=== PATIENT | female | born 1935 | race Caucasian/White ===

== ENCOUNTER 2022-07-07 14:28 | Inpatient (IN) | payer MEDICARE, SELFPAY ==
--- NOTE | ~2022-07-07 | XR_ITS ---
EXAMINATION: XR chest 1V CLINICAL INFORMATION: Hip fracture COMPARISON: None TECHNIQUE: XR chest 1V Tubes and lines: None Lungs and pleura: Nonspecific minimal interstitial lung markings diffuse, no dense focal consolidation lobar pneumonia. No pleural effusion or pneumothorax. Heart and mediastinum: The mediastinum is within normal limits.. Bones/soft tissue: Skeletal structures included are normal for patient's age. XR/XR chest 1V IMPRESSION: * No radiographic evidence of acute cardiopulmonary disease. * Minimal nonspecific increased interstitial lung markings. * No pleural effusion.
--- NOTE | ~2022-07-07 | CT_ITS ---
EXAMINATION: CT CERVICAL SPINE WITHOUT CONTRAST CLINICAL INFORMATION: Fall COMPARISON: None TECHNIQUE: CT cervical spine on sagittal reconstructions. This CT examination was performed using dose optimization techniques as appropriate, variously including the following: *Automated exposure control *Adjustment of mA and/or kV according to patient size (this includes techniques or standardized protocols for targeted exams where dose is matched to indication/reason for exam; i.e. extremities or head) *Use of iterative reconstruction technique DLP: 669 mGy-cm FINDINGS: No abnormal prevertebral soft tissue swelling is seen. Paraspinal muscle fat planes are maintained. No acute cervical spine fracture is noted. Multilevel cervical spondylosis is present C2-C7. There is minimal subluxation seen at the C3-C4 and C4-C5 levels. There is spurring of the joints of [place] causing some anterior neural foraminal encroachment bilaterally C3-C7. Carotid artery calcifications present bilaterally. No significant apical lung lesion is appreciated. CT/CT cervical spine wo IV con IMPRESSION: No acute cervical spine fracture. Multilevel cervical spondylosis as described. Fleischner guidelines were followed.
--- NOTE | ~2022-07-07 | XR_ITS ---
EXAMINATION: XR FOOT, LEFT CLINICAL INFORMATION: Fall COMPARISON: None TECHNIQUE: Limited frontal, and lateral view. FINDINGS: The bones and soft tissues are normal. No fracture. Alignment is anatomic. Joint spaces are maintained. There is a small inferior calcaneal spur. XR/XR foot LT min 3V IMPRESSION: Limited incomplete study. Frontal view suboptimal angulated. * No fracture. * There is a small inferior calcaneal spur.
--- NOTE | ~2022-07-07 | XR_ITS ---
EXAMINATION: XR HIP, LEFT CLINICAL INFORMATION: Fall COMPARISON: None TECHNIQUE: Two views of the left hip. FINDINGS: Displaced angulated fracture of the left femoral neck, cephalad migration of humeral shaft. Femoral head remain properly positioned within the acetabulum. Adjacent pubic rami and iliac bones are intact. There is a right hip prosthesis in place. XR/XR hip LT w PEL1V IMPRESSION: Displaced angulated fracture of the left femoral neck.
--- NOTE | ~2022-07-07 | XR_ITS ---
EXAMINATION: XR PELVIS CLINICAL INFORMATION: Status post left hip hemiarthroplasty. Status post left femoral neck fracture. COMPARISON: July 07, 2022 TECHNIQUE: AP view of the pelvis. FINDINGS: Single view of the lower pelvis performed. No acute fracture or diastases is appreciated. Patient is status post bilateral hip arthroplasties with prosthetic components appearing in good position on this single view. Some gas is seen within the soft tissues about the left hip likely postsurgical. Hardware appears intact. XR/XR pelvis 1-2V IMPRESSION: Satisfactory appearance of bilateral total hip arthroplasties on single AP view.
--- NOTE | ~2022-07-07 | CT_ITS ---
EXAMINATION: CT HEAD WITHOUT CONTRAST CLINICAL INFORMATION: Status post fall COMPARISON: None TECHNIQUE: Contiguous axial imaging was performed from the skull base to vertex without intravenous administration of contrast. This CT examination was performed using dose optimization techniques as appropriate, variously including the following: *Automated exposure control *Adjustment of mA and/or kV according to patient size (this includes techniques or standardized protocols for targeted exams where dose is matched to indication/reason for exam; i.e. extremities or head) *Use of iterative reconstruction technique DLP: 669 mGy-cm FINDINGS: No intracranial hemorrhage identified. No abnormal extra-axial fluid collection. No significant mass effect or midline structure shift. Prieto-white matter interface is maintained. Ventricle sulci and cisterns appear unremarkable. There is some periventricular white matter low density present consistent with microangiopathy. Paranasal sinuses and mastoid air cells are aerated. Pterygoid plates intact. Temporomandibular joints in place. Calvarium appears intact. CT/CT head/brain wo IV con IMPRESSION: No acute intracranial pathology. Findings consistent with microangiopathy.
--- NOTE | ~2022-07-07 | XR_ITS ---
EXAMINATION: XR knee LT 4V CLINICAL INFORMATION: Reason for Exam s/p fall c left leg externally rotated COMPARISON: None available at the time of this dictation. TECHNIQUE: Frontal and lateral FINDINGS: BONES: No fracture or dislocation is present. JOINTS: Narrowing of joint spaces and developed osteophytes from the edges of articular surfaces suggest degenerative osteoarthritis. SOFT TISSUE: Heavy vascular calcifications. XR/XR knee LT 4V IMPRESSION: * No fracture. 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 * Heavy vascular calcifications.
[2022-07-07 14:41] VITALS: BP 150/80; PULSE 73; O2SAT 93
[2022-07-07 14:42] VITALS: BP 138/52; PULSE 75; RESP 16; TEMP 36.9; O2SAT 96; BMI 24.2
--- NOTE | 2022-07-07 15:06 | ECG_ITS ---
Test Reason : FALL Blood Pressure : / mmHG Vent. Rate : 075 BPM Atrial Rate : 075 BPM P-R Int : 176 ms QRS Dur : 084 ms QT Int : 414 ms P-R-T Axes : 053 036 028 degrees QTc Int : 462 ms Normal sinus rhythm Normal ECG When compared with ECG of 23-AUG-2018 13:52, No significant change was found Referred By: Laura Holman Electronically Signed By:ANGELITA GARRISON MD
[2022-07-07 15:56] LABS: MANUAL DIFF FLAG NO
[2022-07-07 15:58] LABS: Basophils Percent Auto 0.3 % (0-2); Eosinophils Percent Auto 0.3 % (0-4); Hematocrit 36.9 % (37.0-47.0); Hemoglobin 12.2 g/dl (12.0-16.0); Imm Gran Abs Auto 0.08 X10*3/uL (0.00-0.03); Imm Gran Pct Auto 0.8 % (0.0-0.4); Lymphocytes Absolute Auto 0.6 X10*3/uL (1.2-4.9); Lymphocytes Percent Auto 6.2 % (20-40); Mean Corpuscular HGB Conc 33.1 g/dl (31.0-35.0); Mean Corpuscular Hemoglobin 30.1 pg (27.0-33.0); Mean Corpuscular Volume 91.1 fL (80.0-98.0); Mean Platelet Volume 10.1 fL (9.4-12.3); Monocytes Absolute Auto 0.5 X10*3/uL (0.1-1.2); Neutrophils Percent Auto 87.4 % (45-73); Platelet Count 203 X10*3/uL (160-400); Red Blood Count 4.05 X10*6/uL (4.20-5.50); Red Cell Distribution Width 13.9 % (11.0-16.0); White Blood Count 10.3 X10*3/uL (4.8-10.8)
[2022-07-07 16:03] LABS: Prothrombin Time 11.3 SEC (10.0-13.1)
[2022-07-07 16:10] LABS: Alanine Aminotransferase 19 U/L (0-31); Albumin Level 3.7 g/dL (3.5-5.0); Alkaline Phosphatase 78 U/L (39-117); Anion Gap 11 (12-20); Aspartate Amino Transferase 20 U/L (5-31); Bilirubin Total 0.4 mg/dL (0.0-1.0); Blood Urea Nitrogen 14 mg/dL (9-16); Calcium 8.6 mg/dL (8.4-10.2); Carbon Dioxide 26 mmol/L (22-29); Chloride 105 mmol/L (96-108); Creatinine Clr Calc Pharmacy 35.3; Estimated Glomerular Filt Rate 50; Glucose Random 110 mg/dL (60-115); Magnesium 2.1 mg/dL (1.6-2.6); Potassium 4.3 mmol/L (3.3-5.1); Sodium 138 mmol/L (135-145); Total Protein 6.4 g/dL (6.5-8.0)
--- NOTE | 2022-07-07 16:30 | ED.FALL ---
HPI - Fall General Chief Complaint: Fall Stated Complaint: FALL W/LLE PAIN & HEAD STRIKE,-CCOLLAR,-LOC Time Seen by Provider: 07/07/22 14:44 Source: patient and EMS Mode of arrival: EMS Limitations: no limitations History of Present Illness HPI Narrative: 86yoF c PMHx of thyroid disease, hyperlipidemia and osteoporosis presenting to the ED via EMS after she had a fall while she was visiting a friend at a longterm prior to arrival. She reports that she was walking when her foot fell ?spongy?. Then she fell and since then she has been having limited ROM to her left leg. She reports that her foot feels cold and numb. Patient reports she did hit her head but did not lose consciousness. She denies any prolonged down time or being on any blood thinners or any symptoms prior to the fall. Reports that she does not ambulate with a walker or cane. She denies any other medical history. She denies any other symptoms which include dizziness, headaches, neck pain/stiffness, chest pain or shortness of breath, palpitations, nausea/vomiting/diarrhea, abdominal pain, back pain, flank pain, dysuria, hematuria, rashes or any other symptoms complaints or concerns at this time. MD complaint: fall Onset (ago): minute(s) (Prior to arrival) Fall from: standing Fall witnessed: yes, by bystander (At the longterm where she was visiting a friend) Place fall occurred: longterm/SNF (She was visiting a friend she does not reside there) Loss of consciousness: none Prolonged down time: no Symptoms prior to fall: none Location of injury: head Location of injury - extremities: left: lower leg (hip/knee aspect) Associated symptoms (after fall): unable to walk (Due to left leg) Related Data Allergies Allergy/AdvReac Type Severity Reaction Status Date / Time zinc [ZINC] Allergy Severe ITCHING Unverified 03/24/20 19:38 sulfamethoxazole Allergy Intermediate RASH Unverified 03/24/20 19:38 [From BACTRIM] trimethoprim [From BACTRIM] Allergy Intermediate RASH Unverified 03/24/20 19:38 Review of Systems Review of Systems: Constitutional : No Weight loss, No Fever, No Chills, No Night Sweats, No Fatigue, No Malaise ENT/Mouth : No Hearing loss, No Ear Pain, No Nasal Congestion, No Sinus Pain, No Hoarseness, No sore throat, No Rhinorrhea, No Swallowing Difficulty Eyes: No Eye Pain, No Swelling, No Redness, No Foreign Body, No Discharge, No Vision Changes Cardiovascular : No Chest Pain, No SOB, No Dyspnea on Exertion, No Orthopnea, No Edema, No Palpitations Respiratory : No Cough, No Sputum, No Wheezing, No Smoke Exposure, No Dyspnea Gastrointestinal : No Nausea, No Vomiting, No Diarrhea, No Constipation, No abdominal Pain, No Hematochezia, No Melena Genitourinary : no irregular bleeding, No Dysuria, No Urinary Frequency, No Hematuria, No Urinary Incontinence, No Urgency, No Flank Pain, No Urinary Flow Changes, No Hesitancy Musculoskeletal : + left hip/knee joint pain, No Myalgias, No Joint Swelling Skin : No Skin Lesions, No rash Neuro : No Weakness, No Numbness, No Paresthesias, No Loss of Consciousness, No Dizziness, No Headache Psych : No Anxiety/Panic, No Depression, No SI/HI/AH/VH, No Social Issues, Heme/Lymph: No Bruising, No Bleeding,No Lymphadenopathy Endocrine : No Polyuria, No Polydipsia, No Temperature Intolerance Yes all other systems are reviewed and are negative [facility] Past Medical History Attestation statement: The following information was validated with the patient. Source: old records reviewed and nursing notes reviewed Social History Social History Advance Directives: No Advance Directives Information Provided: Yes Physical Exam Vital Signs: Vital Signs: Last Vital Signs Temp 98.4 F 07/07/22 14:42 Pulse 75 07/07/22 14:42 Resp 16 07/07/22 14:42 BP 138/52 L 07/07/22 14:42 Pulse Ox 96 07/07/22 14:42 O2 Del Method 07/07/22 14:42 BMI result Body Mass Index 24.2 vital signs have been reviewed as normal and appeared to be correct. Blood pressure normal. Heart rate normal. Respiration rate normal. Temperature normal. Oxygen saturation normal. Appearance: Alert. Oriented X3. No acute distress. Head: Normal external exam. Normocephalic. Atraumatic. No Dumont signs noted. No raccoon eyes noted Eyes: PERRLA. EOMI. Conjunctiva and sclera normal. Eyelids normal. ENT: EAC normal. TM's Normal. No septal hematoma noted. No hemotympanum noted. Pharynx normal. Uvula midline. Moist mucous membranes. No lesions/ulcerations or masses noted on the tongue. Normal voice. No trismus noted. No drooling noted. No muffled voice noted. Neck: Normal inspection. Neck supple. FROM. No adenopathy. Thyroid Normal. No tracheal deviation noted. No crepitus is noted. No meningeal signs. No neck mass noted. No signs of trauma noted. CVS: Normal heart rate and rhythm. Heart sound normal. Pulses normal throughout. No murmurs/rales/gallops. Respiratory: No respiratory distress. Painless inspiration. Breath sounds normal. No wheezes/rales/rhonchi noted. Chest nontender. No crepitus is noted. No accessory muscle usage noted or decreased air movement noted. No signs of trauma. Abdomen: Soft and nontender. Nondistended. No guarding. No rigidity. Bowel sounds normal in all 4 quadrants. No distention noted. No organomegaly noted. No visible injury noted. No rebound tenderness. Negative Rovsing sign. Negative obturator's sign. Negative psoas sign. Negative Og sign. Back: No CVA tenderness. Full range of motion noted. Nontender. No signs of trauma. Patient neuro intact bilaterally and distally on all 4 extremities. Patient's reflexes intact bilaterally and distally on all 4 extremities. No rashes/lesion/induration/fluctuance or signs of infection noted. Skin: Skin warm and dry. Normal skin color. Normal skin turgor. No rashes/lesions/lacerations noted. Extremities: Patient's left lower extremity is abducted with external rotation of leg consistent with left hip fracture. Patient does not have any tenderness to the left ankle or the left knee. Otherwise all other extremities exhibit normal range of motion nontender. Neuro: Oriented X 3. No motor deficit. No sensory deficit. No focal neuro deficits noted. CN's II-XII intact bilaterally? Vascular: + radial pulses/+ 2 distal pedal pulses/+2 dorsalis pedis b/l. Normal cap refill. No cyanosis noted to upper extremity nails and lower extremity toes nails. Course Course Course Narrative: 15pm - 86yoF c PMHx of thyroid disease, HLD and osteoporosis presenting to the ED via EMS after she had a fall while she was visiting a friend at a longterm prior to arrival c left lower leg abduct it with external rotation. She reports that she was walking when her foot fell ?spongy?. Then she fell and since then she has been having limited ROM to her left leg. She reports that her foot feels cold and numb. Patient reports she did hit her head but did not lose consciousness. She denies any prolonged down time or being on any blood thinners or any symptoms prior to the fall. Reports that she does not ambulate with a walker or cane. Plan: Will obtain x-rays, CT scan of brain/cervical spine and patient reports she does not have much pain and refusing any pain meds at this time will re-evaluate. Reevaluation(s) Reevaluation #1: - Left hip x-ray revealed this placed angulated fracture of the left femoral neck otherwise no other acute processes were noted. - left knee/foot and ankle x-ray negative for any acute processes. - chest x-ray within normal limits no acute processes noted - CT scan of brain/cervical spine negative for any acute processes. Therefore labs were obtained and patient's labs are within normal limits. Plan: I spoke to the orthopedic PA Grace who reported that the patient should be kept NPO at midnight and she will most likely have left hip surgery tomorrow. I discussed this case with Nessa Arita the PA and she will be admitting the patient to the hospitalist service. Patient understands agrees with this plan. Time: 16:57 Medical Decision Making Consult Healthcare Provider Management of the patient was discussed with: Hospitalist and Appeals Examiner (Grace, orthopedic PA) Lab Data MDM Lab Attestation statement: I reviewed the patient's lab results. Result Diagrams: 07/07/22 15:51 07/07/22 15:51 Labs: Lab Results 07/07/22 07/07/22 07/07/22 Range/Units 15:51 15:51 15:51 WBC 10.3 (4.8-10.8) X10*3/uL RBC 4.05 L (4.20-5.50) X10*6/uL Hgb 12.2 (12.0-16.0) g/dl Hct 36.9 L (37.0-47.0) % MCV 91.1 (80.0-98.0) fL MCH 30.1 (27.0-33.0) pg MCHC 33.1 (31.0-35.0) g/dl RDW 13.9 (11.0-16.0) % Plt Count 203 (160-400) X10*3/uL MPV 10.1 (9.4-12.3) fL Immature Gran % (Auto) 0.8 H (0.0-0.4) % Neut % (Auto) 87.4 H (45-73) % Lymph % (Auto) 6.2 L (20-40) % [place] % (Auto) 5.0 (2-11) % Eos % (Auto) 0.3 (0-4) % Baso % (Auto) 0.3 (0-2) % Lymph # (Auto) 0.6 L (1.2-4.9) X10*3/uL [place] # (Auto) 0.5 (0.1-1.2) X10*3/uL Eos # (Auto) 0.0 (0.0-0.4) X10*3/uL Baso # (Auto) 0.0 (0.0-0.2) X10*3/uL Abs Immat Gran (auto) 0.08 H (0.00-0.03) X10*3/uL Absolute Neuts (auto) 9.0 H (2.0-8.3) x10*3/uL Absolute Nucleated RBC 0.000 (0.0-0.012) X10*3/uL Nucleated RBC % (auto) 0.0 (0.0-0.2) /100WBC PT 11.3 (10.0-13.1) SEC INR 1.0 (0.9-1.1) Sodium 138 (135-145) mmol/L Potassium 4.3 (3.3-5.1) mmol/L Chloride 105 (96-108) mmol/L Carbon Dioxide 26 (22-29) mmol/L Anion Gap 11 L (12-20) BUN 14 (9-16) mg/dL Creatinine 1.05 (0.5-1.4) mg/dL Estim Creat Clear Calc 35.3 Estimated GFR 50 Random Glucose 110 (60-115) mg/dL Calcium 8.6 (8.4-10.2) mg/dL Magnesium 2.1 (1.6-2.6) mg/dL Total Bilirubin 0.4 (0.0-1.0) mg/dL AST 20 (5-31) U/L ALT 19 (0-31) U/L Alkaline Phosphatase 78 (39-117) U/L Total Protein 6.4 L (6.5-8.0) g/dL Albumin 3.7 (3.5-5.0) g/dL Independent Interpretation Interpretation: CT scan of brain/cervical spine without contrast FINDINGS: No intracranial hemorrhage identified. No abnormal extra-axial fluid collection. No significant mass effect or midline structure shift. Prieto-white matter interface is maintained. Ventricle sulci and cisterns appear unremarkable. There is some periventricular white matter low density present consistent with microangiopathy. Paranasal sinuses and mastoid air cells are aerated. Pterygoid plates intact. Temporomandibular joints in place. Calvarium appears intact. ? CT/CT head/brain wo IV con IMPRESSION: No acute intracranial pathology. ? Findings consistent with microangiopathy. Left knee x-ray TECHNIQUE: Frontal and lateral FINDINGS: BONES: No fracture or dislocation is present. JOINTS: Narrowing of joint spaces and developed osteophytes from the edges of articular surfaces suggest degenerative osteoarthritis. SOFT TISSUE: Heavy vascular calcifications. XR/XR knee LT 4V IMPRESSION: ? *? No fracture. ? *? Degenerative osteoarthritis involving primarily medial compartment. ? *? Heavy vascular calcifications. ? Left hip x-ray FINDINGS: Displaced angulated fracture of the left femoral neck, cephalad migration of humeral shaft. Femoral head remain properly positioned within the acetabulum. Adjacent pubic rami and iliac bones are intact. There is a right hip prosthesis in place. XR/XR hip LT w PEL1V IMPRESSION: ? Displaced angulated fracture of the left femoral neck. Left foot x-ray FINDINGS: The bones and soft tissues are normal. No fracture. Alignment is anatomic. Joint spaces are maintained. There is a small inferior calcaneal spur. XR/XR foot LT min 3V IMPRESSION: Limited incomplete study. Frontal view suboptimal angulated. ? *? No fracture. ? *? There is a small inferior calcaneal spur. Chest x-ray TECHNIQUE: XR chest 1V Tubes and lines: None Lungs and pleura: Nonspecific minimal interstitial lung markings diffuse, no dense focal consolidation lobar pneumonia. No pleural effusion or pneumothorax. Heart and mediastinum: The mediastinum is within normal limits.. Bones/soft tissue: Skeletal structures included are normal for patient's age. XR/XR chest 1V IMPRESSION: ? *? No radiographic evidence of acute cardiopulmonary disease. ? *? Minimal nonspecific increased interstitial lung markings. ? *? No pleural effusion. Radiology Impression Discussion of test interpretation with radiology: I have reviewed the radiologist's reading. Critical Care Time Critical Care Time Critical Care Time: Yes Total Critical Care Time: 60 Attestation: I personally attest to this time spent taking care of the patient Discharge Plan Discharge Clinical Impression: Fall Femoral fracture Qualifiers: Encounter type: initial encounter Fracture type: closed Fracture alignment: displaced Laterality: left Patient Disposition: Admitted As Inpatient
--- NOTE | 2022-07-07 17:19 | P.HPHOSP_ITS ---
History of Present Illness Date of Service: 07/07/22 Chief Complaint: Fall An 86 years old lady with PMH of hypothyroidism, HLD in osteoporosis who presents to the hospital after sustaining a mechanical fall at a visit to her friend. The patient reported that she was walking into [facility] to visit her friend when she suddenly tripped and fell to the floor as her left foot to felt like sponge, she fell on her left side not hitting her head or losing her consciousness. She was unable to stand up on her own so they brought her a chair. She was unable to stand and ambulance was called who brought her to the hospital where an x-ray was consistent with left hip fracture. She denies any headache, double vision pain, chest pain, shortness of breath, fever, chills, change in bowel habit or urinary symptoms. She reports she is functional at home, she walks without a walker or a cane. Admitted for further evaluation and treatment. Review of Systems Review of Systems: No fever, chills or weakness No chest pain, palpitation No shortness of breath or coughing No abdominal pain, nausea or vomiting No urinary symptoms No any rash or wounds PMFSH Medical History Hyperlipidemia Hypothyroidism Osteoporosis Social History Advance Directives: No Advance Directives Information Provided: Yes Meds Allergies Allergy/AdvReac Type Severity Reaction Status Date / Time zinc [ZINC] Allergy Severe ITCHING Unverified 03/24/20 19:38 sulfamethoxazole Allergy Intermediate RASH Unverified 03/24/20 19:38 [From BACTRIM] trimethoprim [From BACTRIM] Allergy Intermediate RASH Unverified 03/24/20 19:38 Active Medications: Current Medications Pharmacy Consult (Consult Rx Perform Med Rec) 1 each MISCELLANE ONCE PRN PRN Reason: Consult order Sodium Chloride (0.9 % Sodium Chloride Flush 3 Ml Syringe) 3 ml IVFLUSH QSHIFT MONI Physical Exam Vital Signs and Narrative: Vital Signs: Last Vital Signs Temp 98.4 F 07/07/22 14:42 Pulse 75 07/07/22 14:42 Resp 16 07/07/22 14:42 BP 138/52 L 07/07/22 14:42 Pulse Ox 96 07/07/22 14:42 O2 Del Method 07/07/22 14:42 BMI result Body Mass Index 24.2 Const: Other: Constitutional : Awake, interactive, not in distress Neck : Normal inspection, Supple Cardiovascular : RRR, no JVP, no lower extremity edema Respiratory : good bilateral air entry, no crackles, wheezes or rhonchi Gastrointestinal: soft, lax, Normal bowel sounds, Non tender Skin : Warm, Dry Musculoskeletal: Left leg shorter and externally rotated, decreased sensation at the tip of her toe, pulse can be felt at posterior tibial Neurological : Alert & oriented x3, No focal deficit , CN 2-12 within normal Results Labs CBC and Chem 7: 07/07/22 15:51 07/07/22 15:51 Labs: Laboratory Results - last 24 hr 07/07/22 07/07/22 07/07/22 15:51 15:51 15:51 MCV 91.1 MCH 30.1 MCHC 33.1 RDW 13.9 Plt Count 203 MPV 10.1 Immature Gran % (Auto) 0.8 H Neut % (Auto) 87.4 H Lymph % (Auto) 6.2 L [place] % (Auto) 5.0 Eos % (Auto) 0.3 Baso % (Auto) 0.3 Lymph # (Auto) 0.6 L [place] # (Auto) 0.5 Eos # (Auto) 0.0 Baso # (Auto) 0.0 Abs Immat Gran (auto) 0.08 H Absolute Neuts (auto) 9.0 H Absolute Nucleated RBC 0.000 Nucleated RBC % (auto) 0.0 PT 11.3 INR 1.0 Anion Gap 11 L Estim Creat Clear Calc 35.3 Estimated GFR 50 Random Glucose 110 Calcium 8.6 Magnesium 2.1 Total Bilirubin 0.4 AST 20 ALT 19 Alkaline Phosphatase 78 Total Protein 6.4 L Albumin 3.7 Imaging Radiologist's Impressions: Impressions Chest X-Ray 07/07/22 15:26 IMPRESSION: * No radiographic evidence of acute cardiopulmonary disease. * Minimal nonspecific increased interstitial lung markings. * No pleural effusion. Foot X-Ray 07/07/22 15:26 IMPRESSION: Limited incomplete study. Frontal view suboptimal angulated. * No fracture. * There is a small inferior calcaneal spur. Hip/Pelvis X-Ray 07/07/22 15:26 IMPRESSION: Displaced angulated fracture of the left femoral neck. Knee X-Ray 07/07/22 15:26 IMPRESSION: * No fracture. 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 * Heavy vascular calcifications. Cervical Spine CT 07/07/22 15:40 IMPRESSION: No acute cervical spine fracture. Multilevel cervical spondylosis as described. Fleischner guidelines were followed. Head CT 07/07/22 15:40 IMPRESSION: No acute intracranial pathology. Findings consistent with microangiopathy. Assessment and Plan (1) Femoral fracture: Qualifiers: Encounter type: initial encounter Fracture alignment: displaced Fracture type: closed Laterality: left Status: Acute (2) Fall: Status: Acute Plan An 86 years old lady with PMH of hypothyroidism, HLD in osteoporosis who presents to the hospital after sustaining a mechanical fall at a visit to her friend. Preop eval Non emergent surgery, no evidence of ACS Functional, independent with ADLs and IADLs Patient carries mild perioperative cardiac risk No further testing, can proceed to surgery Left hip fracture secondary to Fall XR as above Orthopedic team to evaluate and to surgery in the morning Morphine as needed for pain To do physical therapy once surgery is done Hypothyroidism Continue home medication DVT PPX Heparin The patient will need 2. Overnight hospital stay for surgical intervention for left hip fracture and safe discharge plan. Time Spent With Patient Time: Total time managing care of this patient today ____ minutes. Quality Stroke Does the patient have a stroke diagnosis?: No VTE Prior VTE?: No VTE Risk Level:: Medical - low VTE Device Contraindication: Treatment Not Indicated VTE Drug Contraindication: N/A - Med Ordered
--- NOTE | 2022-07-07 18:19 | PHA.MEDREC ---
Pharmacy Consult ? Medication Reconciliation Pharmacy has completed the medication reconciliation. Patient has outdated med list. Confirmed actual meds with patient.
--- NOTE | 2022-07-07 18:36 | PC.NURSE ---
report given to S3 RN Camila
[2022-07-07 19:11] LABS: COVID-19 Test Negative (Negative); IDNOW Serial# 55D5AD1C
[2022-07-07 19:22] VITALS: BP 161/74; PULSE 79; RESP 18; TEMP 36.9; O2SAT 92
[2022-07-07] MEDS: Heparin Sodium,Porcine 5,000 UNIT/ML VIAL 5000 UNIT SUBCUT (20:35)
[2022-07-07] MEDS: 0.9 % Sodium Chloride Flush 3 ML SYRINGE IVFLUSH (20:36)
[2022-07-08] VITALS (13 sets, daily range): BP systolic 101–165; BP diastolic 51–92; PULSE 64–86; RESP 16–18; TEMP 36.1–37.4; O2SAT 91–98
[2022-07-08 06:43] LABS: Anion Gap 12 (12-20); Blood Urea Nitrogen 12 mg/dL (9-16); Calcium 8.4 mg/dL (8.4-10.2); Carbon Dioxide 23 mmol/L (22-29); Chloride 104 mmol/L (96-108); Creatinine Clr Calc Pharmacy 40.7; Estimated Glomerular Filt Rate 58; Glucose Random 124 mg/dL (60-115); Potassium 4.5 mmol/L (3.3-5.1); Sodium 134 mmol/L (135-145)
--- NOTE | 2022-07-08 07:52 | P.CONOP_ITS ---
History of Present Illness HPI Consult date: 07/08/22 Chief complaint: Fall Narrative: Patient is an 86 yo female with a PMH significant for thyroid dz, HLD, and osteoporosis, who presented to the ED yesterday evening after sustaining a mechanical fall while visiting her friend at [facility]. She had immediate left hip pain and after x-rays were obtained in the ED she was found to have a femoral neck fx. She was admitted to the medicine service with orthopedic consult for further evaluation and treatment. She lives alone and walks without any assistive devices. Review of Systems Review of Systems: Yes all other systems are reviewed and are negative PMFSH Past Medical History Medical History Hyperlipidemia Hypothyroidism Osteoporosis Surgical History Surgical History History of hernia surgery History of hip surgery Social History Social History Household Members: None Housing: Other Housing Other:: mobile home Do you presently have visiting nurse or other home services: No Patient Tobacco Use Status: Former Tobacco user Quit Date: 21 years ago Years Smoked: 25 Meds Allergies Allergy/AdvReac Type Severity Reaction Status Date / Time zinc [ZINC] Allergy Severe ITCHING Unverified 03/24/20 19:38 sulfamethoxazole Allergy Intermediate RASH Unverified 03/24/20 19:38 [From BACTRIM] trimethoprim [From BACTRIM] Allergy Intermediate RASH Unverified 03/24/20 19:38 Active Medications: Current Medications Acetaminophen (Acetaminophen 325 Mg Tablet) 650 mg PO Q6H PRN PRN Reason: Pain, Mild (Pain Scale 1-3) Morphine Sulfate (Morphine Sulfate 4 Mg/Ml Cartridge) 2 mg IVPUSH Q4H PRN; Protocol PRN Reason: Pain, Severe (Pain Scale 7-10) Ondansetron HCl (Ondansetron Hcl 4 Mg/2 Ml Vial) 4 mg IVPUSH Q8H PRN PRN Reason: Nausea and Vomiting Pharmacy Consult (Consult Rx Perform Med Rec) 1 each MISCELLANE ONCE PRN PRN Reason: Consult order Sodium Chloride (0.9 % Sodium Chloride Flush 3 Ml Syringe) 3 ml IVFLUSH QSHIFT [facility] Last Admin: 07/07/22 20:36 Dose: 3 ml Home Medications Medication Instructions Recorded Confirmed Last Taken Type alendronate 70 mg tablet 70 mg PO GOODEN@0900 07/07/22 07/07/22 06/24/22 History levothyroxine 75 mcg tablet 1 tab PO DAILY@0600 07/07/22 07/07/22 07/07/22 History simvastatin 10 mg tablet 1 tab PO BEDTIME 07/07/22 07/07/22 07/06/22 History Physical Exam Vital Signs: Vital Signs: Last Vital Signs Temp 98 F 07/08/22 07:41 Pulse 74 07/08/22 07:41 Resp 18 07/08/22 07:41 BP 150/65 H 07/08/22 07:41 Pulse Ox 91 L 07/08/22 07:41 O2 Del Method 07/08/22 06:48 BMI result Body Mass Index 24.2 Const: General: cooperative, healthy appearing and no acute distress Orientation/consciousness: patient oriented x3 HEENT: Head: Yes normal to inspection, Yes normocephalic and Yes atraumatic Eyes: General: appearance normal, both eyes and all related structures Neck: Neck: Yes normal visual inspection and Yes no lymphadenopathy Resp: Effort & Inspection: normal respiratory effort and able to speak in complete sentences Cardio: Rate: regular rate Peripheral pulses: Peripheral pulses 2+ throughout GI: Inspection: Yes normal to inspection Palpation (GI): Soft to palpation Skin: General skin exam: no rashes or lesions noted Lesions: no lesions Rashes: no rashes Neuro: General: patient oriented x3 Extrem: Other: Left lower extremity shortened and externally rotated. Skin intact over the left hip. Ecchymosis noted over the patella. Pain with log roll. Sensation intact. Pedal pulse intact. Psych: Mental Status: mental status grossly normal Results Labs Result Diagrams: 07/07/22 15:51 07/08/22 05:39 Labs: Abnormal lab results 07/07/22 07/07/22 07/08/22 Range/Units 15:51 15:51 05:39 RBC 4.05 L (4.20-5.50) X10*6/uL Hct 36.9 L (37.0-47.0) % Immature Gran % (Auto) 0.8 H (0.0-0.4) % Neut % (Auto) 87.4 H (45-73) % Lymph % (Auto) 6.2 L (20-40) % Lymph # (Auto) 0.6 L (1.2-4.9) X10*3/uL Abs Immat Gran (auto) 0.08 H (0.00-0.03) X10*3/uL Absolute Neuts (auto) 9.0 H (2.0-8.3) x10*3/uL Sodium 134 L (135-145) mmol/L Anion Gap 11 L (12-20) Random Glucose 124 H (60-115) mg/dL Total Protein 6.4 L (6.5-8.0) g/dL H & H 07/07/22 Range/Units 15:51 Hgb 12.2 (12.0-16.0) g/dl Hct 36.9 L (37.0-47.0) % Coagulation 07/07/22 Range/Units 15:51 INR 1.0 (0.9-1.1) All other labs normal. Assessment and Plan (1) Femoral fracture: Qualifiers: Encounter type: initial encounter Fracture alignment: displaced Fracture type: closed Laterality: left Status: Acute (2) Fall: Status: Acute (3) Fracture of femoral neck, left: Status: Acute I discussed the case with Dr. Waldrop and explained the extent of the injury to the patient and options available which include surgical intervention. I explained the procedure in detail along with the length of recovery and rehab course. I explained the risk, benefits and alternatives. Risk including, but not limited to infection, blood clots, bleeding, non union or malunion and nerve/tissue damage to surrounding areas. I answered all their questions and with their understanding they have consented to move forward with Operative Fixation of the left hip. The patient will be T&S, med clearance obtained and has been NPO after midnight. Time Spent With Patient Time: Total time managing care of this patient today ____ minutes. Procedures Date of Service Date of Service: 07/08/22
--- NOTE | 2022-07-08 09:08 | HO.ANESPROP2 ---
[facility] Active Problems Active Problems: All Active Problems (Updated 07/08/22 @ 07:55 by Grace Perez PA-C) Fracture of femoral neck, left (Acute) Femoral fracture (Acute) Fall (Acute) Past Medical History Medical History Hyperlipidemia Hypothyroidism Osteoporosis Functional capacity: uses cane/walker Patient : No Family History Family history of problems with anesthesia: No Surgical History Surgical History History of hernia surgery History of hip surgery History of Problems with Anesthesia: No Social History Social History Household Members: None Housing: Other Housing Other:: mobile home Do you presently have visiting nurse or other home services: No Patient Tobacco Use Status: Former Tobacco user Quit Date: 21 years ago Years Smoked: 25 Meds Allergies Allergy/AdvReac Type Severity Reaction Status Date / Time zinc [ZINC] Allergy Severe ITCHING Unverified 03/24/20 19:38 sulfamethoxazole Allergy Intermediate RASH Unverified 03/24/20 19:38 [From BACTRIM] trimethoprim [From BACTRIM] Allergy Intermediate RASH Unverified 03/24/20 19:38 Active Medications: Current Medications Acetaminophen (Acetaminophen 325 Mg Tablet) 650 mg PO Q6H PRN PRN Reason: Pain, Mild (Pain Scale 1-3) Morphine Sulfate (Morphine Sulfate 4 Mg/Ml Cartridge) 2 mg IVPUSH Q4H PRN; Protocol PRN Reason: Pain, Severe (Pain Scale 7-10) Ondansetron HCl (Ondansetron Hcl 4 Mg/2 Ml Vial) 4 mg IVPUSH Q8H PRN PRN Reason: Nausea and Vomiting Pharmacy Consult (Consult Rx Perform Med Rec) 1 each MISCELLANE ONCE PRN PRN Reason: Consult order Sodium Chloride (0.9 % Sodium Chloride Flush 3 Ml Syringe) 3 ml IVFLUSH [facility] Last Admin: 07/08/22 09:03 Dose: Not Given Home Medications Medication Instructions Recorded Confirmed Last Taken Type alendronate 70 mg tablet 70 mg PO GOODEN@0900 07/07/22 07/07/22 06/24/22 History levothyroxine 75 mcg tablet 1 tab PO DAILY@0600 07/07/22 07/07/22 07/07/22 History simvastatin 10 mg tablet 1 tab PO BEDTIME 07/07/22 07/07/22 07/06/22 History Exam Exam Date and Time: July 08, 2022 0908 Height,Weight and Vital Signs: Height 5 ft 6 in Weight 68.039 kg Last Vital Signs Temp 98 F 07/08/22 07:41 Pulse 74 07/08/22 07:41 Resp 18 07/08/22 07:41 BP 150/65 H 07/08/22 07:41 Pulse Ox 91 L 07/08/22 07:41 O2 Del Method 07/08/22 06:48 Pertinent Lab Results Pertinent Lab Results: Laboratory Tests 07/07/22 07/07/22 07/07/22 15:51 15:51 15:51 WBC 10.3 RBC 4.05 L Hgb 12.2 Hct 36.9 L MCV 91.1 MCH 30.1 MCHC 33.1 RDW 13.9 Plt Count 203 MPV 10.1 Immature Gran % (Auto) 0.8 H Neut % (Auto) 87.4 H Lymph % (Auto) 6.2 L [place] % (Auto) 5.0 Eos % (Auto) 0.3 Baso % (Auto) 0.3 Lymph # (Auto) 0.6 L [place] # (Auto) 0.5 Eos # (Auto) 0.0 Baso # (Auto) 0.0 Abs Immat Gran (auto) 0.08 H Absolute Neuts (auto) 9.0 H Absolute Nucleated RBC 0.000 Nucleated RBC % (auto) 0.0 PT 11.3 INR 1.0 Sodium 138 Potassium 4.3 Chloride 105 Carbon Dioxide 26 Anion Gap 11 L BUN 14 Creatinine 1.05 Estim Creat Clear Calc 35.3 Estimated GFR 50 Random Glucose 110 Calcium 8.6 Magnesium 2.1 Total Bilirubin 0.4 AST 20 ALT 19 Alkaline Phosphatase 78 Total Protein 6.4 L Albumin 3.7 COVID-19 ([facility]) COVID-19 Clin Com Blood Type Antibody Screen 07/07/22 07/07/22 07/08/22 18:52 20:08 05:39 WBC RBC Hgb Hct MCV MCH MCHC RDW Plt Count MPV Immature Gran % (Auto) Neut % (Auto) Lymph % (Auto) [place] % (Auto) Eos % (Auto) Baso % (Auto) Lymph # (Auto) [place] # (Auto) Eos # (Auto) Baso # (Auto) Abs Immat Gran (auto) Absolute Neuts (auto) Absolute Nucleated RBC Nucleated RBC % (auto) PT INR Sodium 134 L Potassium 4.5 Chloride 104 Carbon Dioxide 23 Anion Gap 12 BUN 12 Creatinine 0.91 Estim Creat Clear Calc 40.7 Estimated GFR 58 Random Glucose 124 H Calcium 8.4 Magnesium Total Bilirubin AST ALT Alkaline Phosphatase Total Protein Albumin COVID-19 ([facility]) Negative COVID-19 Clin Com See Note Blood Type A Positive Antibody Screen NEGATIVE Airway Mallampati Class: II TM Dist: >3cm Neck ROM: Full Denture: Upper and Lower Heart: RRR Lungs: CTA Assessment and Plan Final Anesthetic Review Family History of Problems with Anesthesia: No History of Problems with Anesthesia: No NPO: Yes ASA Class: II and Emergency Final Preanesthetic Review: Meds/Allgs Chart Reviewed, Consent Obtained/Reviewed and Anes Risks/Benef Reviewed Patient Risk: Intermediate Procedure Risk: Intermediate Anesthetic Plan Anesthetic Plan: GA Disposition: Standard PACU
--- NOTE | 2022-07-08 09:24 | MHC.SHP ---
Pre-Procedural Eval Section A Date of Service: 07/08/22 The patient is an INPATIENT: Yes Changes since office visit: No Cold of Flu in the past 2 weeks, No New Medical Problems, No Changes in Medication and No Patient answered all questions The History & Physical has been completed within 30 days and I have reviewed it.: Yes Section B Chief Complaint: Fall Allergies: Allergies Allergy/AdvReac Type Severity Reaction Status Date / Time zinc [ZINC] Allergy Severe ITCHING Unverified 03/24/20 19:38 sulfamethoxazole Allergy Intermediate RASH Unverified 03/24/20 19:38 [From BACTRIM] trimethoprim [From BACTRIM] Allergy Intermediate RASH Unverified 03/24/20 19:38 Plan I have reviewed the history and physical and performed a pertinent physical examination on my patient. No changes have occurred unless specified. Time Spent With Patient Time: Total time managing care of this patient today ____ minutes.
--- NOTE | 2022-07-08 11:04 | PM.OP ---
Brief Operative Note Date of Service: 07/08/22 Pre-op diagnosis: Left femoral neck fracture Post-op diagnosis: same Procedure: Left hip hemiarthroplasty Implants: Olga Lidia Accollade II #6 127 deg with a +4 bipolar Surgeon: Rupesh Waldrop MD Anesthesia: GETA and local Was an Consulting Manager used for this Procedure?: Yes Consulting Manager: Grace Perez Estimated blood loss (mL): 200 IV fluids (mL): 850 Pathology: other Condition: stable Disposition: PACU
--- NOTE | 2022-07-08 11:29 | HO.PM.IMPN ---
Subjective Subjective Date of Service: 07/08/22 Interval History: Seen and evaluated this morning Denies any pain, fever or chills No reported overnight events Plan for surgery this morning Review of Systems No fever, chills or weakness No chest pain, palpitation No shortness of breath or coughing No abdominal pain, nausea or vomiting No urinary symptoms No any rash or wounds Physical Exam Vital Signs: Vital Signs: Last Vital Signs Temp 98 F 07/08/22 07:41 Pulse 74 07/08/22 07:41 Resp 18 07/08/22 07:41 BP 150/65 H 07/08/22 07:41 Pulse Ox 91 L 07/08/22 07:41 O2 Del Method 07/08/22 06:48 BMI result Body Mass Index 24.2 Const: Other: Constitutional : Awake, interactive, not in distress Neck : Normal inspection, Supple Cardiovascular : RRR, no JVP, no lower extremity edema Respiratory : good bilateral air entry, no crackles, wheezes or rhonchi Gastrointestinal: soft, lax, Normal bowel sounds, Non tender Skin : Warm, Dry Musculoskeletal: Left leg shorter and externally rotated, decreased sensation at the tip of her toe, pulse can be felt at posterior tibial Neurological : Alert & oriented x3, No focal deficit , CN 2-12 within normal Objective Data Active Medications Acetaminophen (Acetaminophen 325 Mg Tablet) 650 mg PO Q6H PRN PRN Reason: Pain, Mild (Pain Scale 1-3) Fentanyl (Fentanyl Citrate/Pf 100 Mcg/2 Ml Vial) 25 mcg IVPUSH Q5M PRN; Protocol PRN Reason: Pain, Moderate (Pain Scale 4-6 Morphine Sulfate (Morphine Sulfate 4 Mg/Ml Cartridge) 2 mg IVPUSH Q4H PRN; Protocol PRN Reason: Pain, Severe (Pain Scale 7-10) Ondansetron HCl (Ondansetron Hcl 4 Mg/2 Ml Vial) 4 mg IVPUSH Q8H PRN PRN Reason: Nausea and Vomiting Ondansetron HCl (Ondansetron Hcl 4 Mg/2 Ml Vial) 4 mg IVPUSH ONCE PRN PRN Reason: Nausea and Vomiting Pharmacy Consult (Consult Rx Perform Med Rec) 1 each MISCELLANE ONCE PRN PRN Reason: Consult order Sodium Chloride (0.9 % Sodium Chloride Flush 3 Ml Syringe) 3 ml IVFLUSH [facility] Last Admin: 07/08/22 09:03 Dose: Not Given Documented By: SHAMIR Non-Admin Reason: Off Unit: Surgery Labs CBC & Chem 7: 07/07/22 15:51 07/08/22 05:39 Labs: Laboratory Results - last 24 hr 07/07/22 07/07/22 07/07/22 15:51 15:51 15:51 MCV 91.1 MCH 30.1 MCHC 33.1 RDW 13.9 Plt Count 203 MPV 10.1 Immature Gran % (Auto) 0.8 H Neut % (Auto) 87.4 H Lymph % (Auto) 6.2 L [place] % (Auto) 5.0 Eos % (Auto) 0.3 Baso % (Auto) 0.3 Lymph # (Auto) 0.6 L [place] # (Auto) 0.5 Eos # (Auto) 0.0 Baso # (Auto) 0.0 Abs Immat Gran (auto) 0.08 H Absolute Neuts (auto) 9.0 H Absolute Nucleated RBC 0.000 Nucleated RBC % (auto) 0.0 PT 11.3 INR 1.0 Anion Gap 11 L Estim Creat Clear Calc 35.3 Estimated GFR 50 Random Glucose 110 Calcium 8.6 Magnesium 2.1 Total Bilirubin 0.4 AST 20 ALT 19 Alkaline Phosphatase 78 Total Protein 6.4 L Albumin 3.7 COVID-19 ([facility]) COVID-19 Clin Com Blood Type Antibody Screen 07/07/22 07/07/22 07/08/22 18:52 20:08 05:39 MCV MCH MCHC RDW Plt Count MPV Immature Gran % (Auto) Neut % (Auto) Lymph % (Auto) [place] % (Auto) Eos % (Auto) Baso % (Auto) Lymph # (Auto) [place] # (Auto) Eos # (Auto) Baso # (Auto) Abs Immat Gran (auto) Absolute Neuts (auto) Absolute Nucleated RBC Nucleated RBC % (auto) PT INR Anion Gap 12 Estim Creat Clear Calc 40.7 Estimated GFR 58 Random Glucose 124 H Calcium 8.4 Magnesium Total Bilirubin AST ALT Alkaline Phosphatase Total Protein Albumin COVID-19 ([facility]) Negative COVID-19 Clin Com See Note Blood Type A Positive Antibody Screen NEGATIVE Assessment and Plan (1) Fracture of femoral neck, left: Status: Acute (2) Fall: Status: Acute Plan An 86 years old lady with PMH of hypothyroidism, HLD in osteoporosis who presents to the hospital after sustaining a mechanical fall at a visit to her friend. Left hip fracture secondary to Fall XR as reported Orthopedic team to do surgery today Morphine as needed for pain physical therapy once surgery is done Hypothyroidism Continue home medication DVT PPX Heparin The patient will need Overnight hospital stay for surgical intervention for left hip fracture and safe discharge plan. Time Spent With Patient Time: Total time managing care of this patient today ____ minutes. Quality Stroke Does the patient have a stroke diagnosis?: No VTE Prior VTE?: No VTE Risk Level:: Medical - low VTE Device Contraindication: Treatment Not Indicated VTE Drug Contraindication: N/A - Med Ordered
[2022-07-08] MEDS: Lactated Ringers 1,000 ML 100 ML IVCONT ×2 (12:05→21:00)
[2022-07-08] MEDS: Celecoxib 200 MG CAPSULE PO ×2 (12:36→21:12)
[2022-07-08] MEDS: oxyCODONE HCl ER 10 MG TAB.ER.12H PO ×2 (12:36→21:06)
[2022-07-08] MEDS: Docusate Sodium 100 MG CAPSULE PO ×2 (12:36→21:06)
[2022-07-08] MEDS: ceFAZolin Sodium/Dextrose,Iso 2 GM/50 ML PIGGYBACK IV (15:51)
[2022-07-08] MEDS: Atorvastatin Calcium 10 MG TABLET PO (21:06)
[2022-07-09] VITALS (13 sets, daily range): BP systolic 94–126; BP diastolic 45–58; PULSE 60–71; RESP 12–20; TEMP 36.6–37.2; O2SAT 91–100
[2022-07-09 06:01] LABS: MANUAL DIFF FLAG NO
[2022-07-09] MEDS: Levothyroxine Sodium 75 MCG TABLET PO (06:03)
[2022-07-09] MEDS: Lactated Ringers 1,000 ML 100 ML IVCONT (06:04)
[2022-07-09 06:22] LABS: Basophils Percent Auto 0.3 % (0-2); Eosinophils Percent Auto 0.1 % (0-4); Imm Gran Abs Auto 0.07 X10*3/uL (0.00-0.03); Imm Gran Pct Auto 0.9 % (0.0-0.4); Lymphocytes Absolute Auto 0.4 X10*3/uL (1.2-4.9); Lymphocytes Percent Auto 5.5 % (20-40); Mean Corpuscular HGB Conc 33.3 g/dl (31.0-35.0); Mean Corpuscular Hemoglobin 30.1 pg (27.0-33.0); Mean Corpuscular Volume 90.2 fL (80.0-98.0); Mean Platelet Volume 10.9 fL (9.4-12.3); Monocytes Absolute Auto 0.6 X10*3/uL (0.1-1.2); Monocytes Percent Auto 7.4 % (2-11); Neutrophils Absolute Auto 6.9 x10*3/uL (2.0-8.3); Neutrophils Percent Auto 85.8 % (45-73); Platelet Count 142 X10*3/uL (160-400); Red Blood Count 2.66 X10*6/uL (4.20-5.50)
[2022-07-09 06:41] LABS: Anion Gap 12 (12-20); Blood Urea Nitrogen 20 mg/dL (9-16); Calcium 7.8 mg/dL (8.4-10.2); Carbon Dioxide 23 mmol/L (22-29); Chloride 101 mmol/L (96-108); Creatinine Clr Calc Pharmacy 32.5; Estimated Glomerular Filt Rate 45; Glucose Random 117 mg/dL (60-115); Potassium 4.8 mmol/L (3.3-5.1); Sodium 131 mmol/L (135-145)
[2022-07-09] MEDS: Docusate Sodium 100 MG CAPSULE PO ×2 (08:38→20:24)
[2022-07-09] MEDS: oxyCODONE HCl ER 10 MG TAB.ER.12H PO ×2 (08:38→20:24)
[2022-07-09] MEDS: Celecoxib 200 MG CAPSULE PO ×2 (08:38→20:24)
--- NOTE | 2022-07-09 09:26 | MHC.CM.PN ---
IMM 07/09/22 DELIVERED AND PLACED IN CHART, CM MET W/PT WH IS A&OX4, PT REPORTS SHE WAS VISITING HER OLD ROOMMATE AT [facility] WHERE SHE RESIDES IN LT AND FELL AND BROKE HER HIP AND SHE WOULD LIKE TO GO THERE FOR STR SO SHE CAN VISIT. PT VERIFIES PFIZER X3 AND CARD PROVIDED, PCP IS EMMA CANTU AND HCP IS XIMENA ORDOÑEZ [phone] AND ED WILL BRING IN COPY. JULIO C D/C TO [facility] FOR STR TODAY OR TOMORROW W/[facility] FOR TRANSPORT
--- NOTE | 2022-07-09 11:25 | P.PNIM_ITS ---
Subjective Subjective Date of Service: 07/09/22 Interval History: Seen and evaluated this morning Denies any pain, fever or chills Hemoglobin noted to drop to 8, no reported bleeding No reported overnight events Review of Systems No fever, chills or weakness No chest pain, palpitation No shortness of breath or coughing No abdominal pain, nausea or vomiting No urinary symptoms No any rash or wounds Physical Exam Vital Signs: Vital Signs: Last Vital Signs Temp 98.0 F 07/09/22 08:00 Pulse 65 07/09/22 08:00 Resp 18 07/09/22 08:00 BP 112/52 L 07/09/22 08:00 Pulse Ox 93 07/09/22 08:00 O2 Del Method 07/09/22 08:00 O2 Flow Rate 3 07/09/22 08:00 BMI result Body Mass Index 24.2 Const: Other: Constitutional : Awake, interactive, not in distress Neck : Normal inspection, Supple Cardiovascular : RRR, no JVP, no lower extremity edema Respiratory : good bilateral air entry, no crackles, wheezes or rhonchi Gastrointestinal: soft, lax, Normal bowel sounds, Non tender Skin : Warm, Dry Musculoskeletal: Left leg surgical site covered with dressing, no erythema drainage or bleeding noted Neurological : Alert & oriented x3, No focal deficit Objective Data Active Medications Acetaminophen (Acetaminophen 325 Mg Tablet) 650 mg PO Q6H PRN PRN Reason: Pain, Mild (Pain Scale 1-3) Atorvastatin Calcium (Atorvastatin Calcium 10 Mg Tablet) 10 mg PO BEDTIME ON LICENSE OF [facility] Last Admin: 07/08/22 21:06 Dose: 10 mg Documented By: OMKAR Celecoxib (Celecoxib 200 Mg Capsule) 200 mg PO BID ON LICENSE OF [facility] Last Admin: 07/09/22 08:38 Dose: 200 mg Documented By: SHAMIR Docusate Sodium (Docusate Sodium 100 Mg Capsule) 100 mg PO BID ON LICENSE OF [facility] Last Admin: 07/09/22 08:38 Dose: 100 mg Documented By: SHAMIR Enoxaparin Sodium (Enoxaparin Sodium 40 Mg/0.4 Ml Syringe) 40 mg SUBCUT Q24H ON LICENSE OF [facility] Fentanyl (Fentanyl Citrate/Pf 100 Mcg/2 Ml Vial) 25 mcg IVPUSH Q5M PRN; Protocol PRN Reason: Pain, Moderate (Pain Scale 4-6 Hydromorphone HCl (Hydromorphone Hcl 0.5 Mg/0.5 Ml Syringe) 0.25 mg IVPUSH Q4H PRN; Protocol PRN Reason: Pain, Severe (Pain Scale 7-10) Lactated Ringer's (Lr) 1,000 mls @ 100 mls/hr IVCONT .Q10H ON LICENSE OF [facility] Stop: 07/09/22 14:00 Last Admin: 07/09/22 06:04 Dose: 100 mls/hr Documented By: OMKAR Levothyroxine Sodium (Levothyroxine Sodium 75 Mcg Tablet) 75 mcg PO DAILY@0600 ON LICENSE OF [facility] Last Admin: 07/09/22 06:03 Dose: 75 mcg Documented By: OMKAR Ondansetron HCl (Ondansetron Hcl 4 Mg/2 Ml Vial) 4 mg IVPUSH ONCE PRN PRN Reason: Nausea and Vomiting Oxycodone HCl (Oxycodone Hcl Immed Release 5 Mg Tablet) 5 mg PO Q4H PRN PRN Reason: Pain, Moderate (Pain Scale 4-6 Oxycodone HCl (Oxycodone Hcl Er 10 Mg Tab.Er.12h) 10 mg PO BID ON LICENSE OF [facility] Last Admin: 07/09/22 08:38 Dose: 10 mg Documented By: SHAMIR Pharmacy Consult (Consult Rx Perform Med Rec) 1 each MISCELLANE ONCE PRN PRN Reason: Consult order Sodium Chloride (0.9 % Sodium Chloride Flush 3 Ml Syringe) 3 ml IVFLUSH [facility] Last Admin: 07/09/22 08:38 Dose: Not Given Documented By: SHAMIR Non-Admin Reason: IV Running Sodium Chloride (0.9 % Sodium Chloride Flush 3 Ml Syringe) 3 ml IVFLUSH [facility] Last Admin: 07/09/22 08:38 Dose: Not Given Documented By: SHAMIR Non-Admin Reason: Duplicate Order Labs CBC & Chem 7: 07/09/22 05:33 07/09/22 05:33 Labs: Laboratory Results - last 24 hr 07/09/22 07/09/22 05:33 05:33 MCV 90.2 MCH 30.1 MCHC 33.3 RDW 14.0 Plt Count 142 L D MPV 10.9 Immature Gran % (Auto) 0.9 H Neut % (Auto) 85.8 H Lymph % (Auto) 5.5 L [place] % (Auto) 7.4 Eos % (Auto) 0.1 Baso % (Auto) 0.3 Lymph # (Auto) 0.4 L [place] # (Auto) 0.6 Eos # (Auto) 0.0 Baso # (Auto) 0.0 Abs Immat Gran (auto) 0.07 H Absolute Neuts (auto) 6.9 Absolute Nucleated RBC 0.000 Nucleated RBC % (auto) 0.0 Anion Gap 12 Estim Creat Clear Calc 32.5 Estimated GFR 45 Random Glucose 117 H Calcium 7.8 L D Assessment and Plan (1) Fracture of femoral neck, left: Status: Acute (2) Femoral fracture: Status: Acute (3) Acute anemia: Status: Acute Plan An 86 years old lady with PMH of hypothyroidism, HLD in osteoporosis who presents to the hospital after sustaining a mechanical fall at a visit to her friend. Left hip fracture secondary to Fall Pod 1 Orthopedic team following Start Lovenox for prophylaxis Morphine as needed for pain physical therapy once surgery is done Acute on chronic anemia Combination of dilution and blood loss No OBS source of bleeding, no active bleeding now Likely more from all the fluids she received since admission Check occult stool DC IV fluid and monitor H and H Hypothyroidism Continue home medication DVT PPX Lovenox The patient will need Overnight hospital stay pending PT evaluation, a anemia evaluation and safe discharge plan. Time Spent With Patient Time: Total time managing care of this patient today ____ minutes. Quality Stroke Does the patient have a stroke diagnosis?: No VTE Prior VTE?: No VTE Risk Level:: Medical - low VTE Device Contraindication: Treatment Not Indicated VTE Drug Contraindication: N/A - Med Ordered
[2022-07-09] MEDS: Enoxaparin Sodium 40 MG/0.4 ML SYRINGE SUBCUT (11:48)
--- NOTE | 2022-07-09 11:57 | PM.PNORT ---
Subjective Subjective Date of Service: 07/09/22 Principal diagnosis: let femoral neck fracture s/p left hip hemiarthroplasty Interval history: Maxine feels well. Denies pain. Sitting comfortably in chair. Physical Exam Vital Signs: Vital Signs: Last Vital Signs Temp 98.4 F 07/09/22 11:53 Pulse 63 07/09/22 11:53 Resp 18 07/09/22 11:53 BP 97/46 L 07/09/22 11:53 Pulse Ox 91 L 07/09/22 11:53 O2 Del Method 07/09/22 11:53 O2 Flow Rate 2 07/09/22 11:53 Oxygen Flow Rate 2 07/09/22 09:09 BMI result Body Mass Index 24.2 Extrem: Other: SILT LLE Intact TA/GC/EHL Dressing c/d/i Procedures Date of Service Date of Service: 07/09/22 Progress Note: A&P Assessment and plan (1) Fracture of femoral neck, left: Status: Acute Assessment and Plan: S/p Left hip hemiarthroplasty doing well H/H: 24/8 with soft BP in the 90s this am but otherwise asymptomatic. May consider transfusion if additional symptoms emerge Lovenox to start this am Mechanical prophylaxis Pain controlled Dispo planning PT- [facility] Time Spent With Patient Time: Total time managing care of this patient today ____ minutes. Quality Stroke Does the patient have a stroke diagnosis?: No VTE Prior VTE?: No VTE Risk Level:: Medical - low VTE Device Contraindication: Treatment Not Indicated VTE Drug Contraindication: N/A - Med Ordered
--- NOTE | 2022-07-09 12:03 | W.PM.OPN ---
Operative Note Operative Note Date of Service: 07/08/22 Narrative: Date of Service: 07/08/22 Pre-op diagnosis: Left femoral neck fracture Post-op diagnosis: same Procedure: Left hip hemiarthroplasty Implants: Olga Lidia Accollade II #6 127 deg with a +4 26/48 bipolar Surgeon: Rupesh Waldrop MD Anesthesia: GETA and local Was an Transitions Manager used for this Procedure?: Yes Transitions Manager: Grace Perez Estimated blood loss (mL): 200 IV fluids (mL): 850 Pathology: other Condition: stable Disposition: PACU Procedure in detail: Patient was brought to the operative room placed in the lateral decubitus position. All bony prominences were well padded and the was prepped and draped in standard sterile fashion. IV antibiotics per weight were administered and a time-out was called to identify proper site proper procedure proper surgeon. Radiographs were available and confirmed. TXA was administered. I began by making a curvilinear incision over the posterolateral aspect of the greater trochanter. Dissection was taken down to the tensor fascia which was incised in line with the incision and a Charnley retractor was placed. The hip was internally rotated and the external rotators were identified. All vessels in the area were cauterized and a full-thickness capsular/external rotator layer was developed in a hockey-stick fashion starting just proximal to the piriformis. This layer was tagged and the displaced femoral neck fracture was identified. Clean-up cuts was performed while protecxtion the posterolateral soft tissues and the head was removed and measured (49 mm) on the back table. I then copiously irrigated the acetabulum and removed all bony fragments. Once this was done I used a cookie cutter to lateralize and a Charnley awl to identify the canal and then sequentially broached up to a 127 deg #6. I then trialed with a standard head and a bipolar component matching the femoral head size. I was satisfied with the range of motion and stability and length. Therefore I removed all instrumentation and copiously irrigated. I then placed my final femoral implant and then retrialed. I was satisfied with the +4 26/48 implants. THe final bipolar components were then placed. I closed the capsular layer with FiberWire and then, after a three minute iodine soak and additional TXA, I performed a layered closure with vivian on skin. The patient was placed in sterile dressing extubated brought to recovery room in stable condition there were no known complications.
--- NOTE | 2022-07-09 14:03 | PC.NURSE ---
amaro catheter removed at 1400, DTV at [address]. [address]
[2022-07-09 16:30] LABS: PLT CLUMP 1
[2022-07-09 16:32] LABS: Hematocrit 26.9 % (37.0-47.0); Hemoglobin 8.9 g/dl (12.0-16.0); Mean Corpuscular HGB Conc 33.1 g/dl (31.0-35.0); Mean Corpuscular Hemoglobin 29.3 pg (27.0-33.0); Mean Corpuscular Volume 88.5 fL (80.0-98.0); Mean Platelet Volume 10.1 fL (9.4-12.3); Red Blood Count 3.04 X10*6/uL (4.20-5.50)
[2022-07-09 16:38] LABS: Platelet Count 141 X10*3/uL (160-400); White Blood Count 7.6 X10*3/uL (4.8-10.8)
[2022-07-09] MEDS: Atorvastatin Calcium 10 MG TABLET PO (20:24)
[2022-07-09] MEDS: 0.9 % Sodium Chloride Flush 3 ML SYRINGE IVFLUSH (20:25)
[2022-07-10] VITALS: BP 138/63; PULSE 67; RESP 15; TEMP 36.6; O2SAT 95
[2022-07-10 03:47] VITALS: BP 145/62; PULSE 63; RESP 14; TEMP 36.8; O2SAT 97
[2022-07-10] MEDS: Levothyroxine Sodium 75 MCG TABLET PO (05:46)
[2022-07-10 06:33] LABS: MANUAL DIFF FLAG NO
[2022-07-10 06:41] LABS: Basophils Percent Auto 0.5 % (0-2); Eosinophils Absolute Auto 0.1 X10*3/uL (0.0-0.4); Eosinophils Percent Auto 2.3 % (0-4); Hematocrit 29.9 % (37.0-47.0); Hemoglobin 9.9 g/dl (12.0-16.0); Imm Gran Pct Auto 1.8 % (0.0-0.4); Lymphocytes Absolute Auto 0.9 X10*3/uL (1.2-4.9); Lymphocytes Percent Auto 16.4 % (20-40); Mean Corpuscular HGB Conc 33.1 g/dl (31.0-35.0); Mean Corpuscular Hemoglobin 29.2 pg (27.0-33.0); Mean Corpuscular Volume 88.2 fL (80.0-98.0); Mean Platelet Volume 10.7 fL (9.4-12.3); Monocytes Absolute Auto 0.4 X10*3/uL (0.1-1.2); Monocytes Percent Auto 7.4 % (2-11); Neutrophils Percent Auto 71.6 % (45-73); Platelet Count 128 X10*3/uL (160-400); Red Blood Count 3.39 X10*6/uL (4.20-5.50); Red Cell Distribution Width 15.5 % (11.0-16.0); White Blood Count 5.6 X10*3/uL (4.8-10.8)
[2022-07-10 06:53] LABS: Anion Gap 9 (12-20); Blood Urea Nitrogen 22 mg/dL (9-16); Calcium 8.2 mg/dL (8.4-10.2); Carbon Dioxide 26 mmol/L (22-29); Chloride 105 mmol/L (96-108); Creatinine Clr Calc Pharmacy 37.1; Estimated Glomerular Filt Rate 52; Glucose Random 97 mg/dL (60-115); Potassium 4.6 mmol/L (3.3-5.1); Sodium 135 mmol/L (135-145)
--- NOTE | 2022-07-10 07:42 | P.PNOP_ITS ---
Subjective Subjective Date of Service: 07/10/22 Principal diagnosis: let femoral neck fracture s/p left hip hemiarthroplasty Interval history: POD 2 s/p Left hip hemiarthroplasty no overnight events states she has been out of bed, no concerns denies sob, cp, palpitations Physical Exam Vital Signs: Vital Signs: Last Vital Signs Temp 98.3 F 07/10/22 03:47 Pulse 63 07/10/22 03:47 Resp 14 07/10/22 03:47 BP 145/62 H 07/10/22 03:47 Pulse Ox 97 07/10/22 03:47 O2 Del Method 07/10/22 03:47 O2 Flow Rate 2 07/10/22 03:47 Oxygen Flow Rate 2 07/09/22 09:09 BMI result Body Mass Index 24.2 Const: General: cooperative, healthy appearing and no acute distress Resp: Effort & Inspection: normal respiratory effort and able to speak in complete sentences Cardio: Rate: regular rate Peripheral pulses: Peripheral pulses 2+ throughout GI: Palpation (GI): Soft to palpation Skin: General skin exam: no rashes or lesions noted Extrem: Other: incision clean dry and intact. Raymond intact. No erythema or effusion. Calf supple nontender. Neurovascularly intact. Procedures Date of Service Date of Service: 07/10/22 Progress Note: A&P Assessment and plan (1) Fracture of femoral neck, left: Status: Acute Plan * Continue pain mgmnt * continue lovenox for dvt ppx * continue PT/Ot for left hip ritesh-wbat , pot. precautions * Dispo planning-STR once medically cleared * f/u with ortho in 2 weeks Time Spent With Patient Time: Total time managing care of this patient today ____ minutes. Quality Stroke Does the patient have a stroke diagnosis?: No VTE Prior VTE?: No VTE Risk Level:: Medical - low VTE Device Contraindication: Treatment Not Indicated VTE Drug Contraindication: N/A - Med Ordered
[2022-07-10 08:00] VITALS: BP 115/75; PULSE 65; RESP 18; TEMP 36.5; O2SAT 96
[2022-07-10] MEDS: Celecoxib 200 MG CAPSULE PO (08:59)
[2022-07-10] MEDS: oxyCODONE HCl ER 10 MG TAB.ER.12H PO (08:59)
[2022-07-10] MEDS: 0.9 % Sodium Chloride Flush 3 ML SYRINGE IVFLUSH (08:59)
[2022-07-10 09:00] VITALS: O2SAT 96
[2022-07-10] MEDS: Docusate Sodium 100 MG CAPSULE PO (09:00)
--- NOTE | 2022-07-10 10:59 | HO.PM.IMPN ---
Subjective Subjective Date of Service: 07/10/22 Interval History: Seen and evaluated this morning Denies any pain, fever or chills Hemoglobin and improved to 9.9 after 2 units transfusion No reported overnight events Review of Systems No fever, chills or weakness No chest pain, palpitation No shortness of breath or coughing No abdominal pain, nausea or vomiting No urinary symptoms No any rash or wounds Physical Exam Vital Signs: Vital Signs: Last Vital Signs Temp 97.7 F 07/10/22 08:00 Pulse 65 07/10/22 08:00 Resp 18 07/10/22 08:00 BP 115/75 07/10/22 08:00 Pulse Ox 96 07/10/22 09:00 O2 Del Method 07/10/22 09:00 O2 Flow Rate 2 07/10/22 08:00 Oxygen Flow Rate 2 07/10/22 09:00 BMI result Body Mass Index 24.2 Const: Other: Constitutional : Awake, interactive, not in distress Neck : Normal inspection, Supple Cardiovascular : RRR, no JVP, no lower extremity edema Respiratory : good bilateral air entry, no crackles, wheezes or rhonchi Gastrointestinal: soft, lax, Normal bowel sounds, Non tender Skin : Warm, Dry Musculoskeletal: Left leg surgical site covered with dressing, no erythema drainage or bleeding noted Neurological : Alert & oriented x3, No focal deficit Objective Data Active Medications Acetaminophen (Acetaminophen 325 Mg Tablet) 650 mg PO Q6H PRN PRN Reason: Pain, Mild (Pain Scale 1-3) Atorvastatin Calcium (Atorvastatin Calcium 10 Mg Tablet) 10 mg PO BEDTIME [facility] Last Admin: 07/09/22 20:24 Dose: 10 mg Documented By: JIMENA Celecoxib (Celecoxib 200 Mg Capsule) 200 mg PO BID [facility] Last Admin: 07/10/22 08:59 Dose: 200 mg Documented By: LEXA Docusate Sodium (Docusate Sodium 100 Mg Capsule) 100 mg PO BID [facility] Last Admin: 07/10/22 09:00 Dose: 100 mg Documented By: LEXA Enoxaparin Sodium (Enoxaparin Sodium 40 Mg/0.4 Ml Syringe) 40 mg SUBCUT Q24H [facility] Last Admin: 07/09/22 11:48 Dose: 40 mg Documented By: SHAMIR Fentanyl (Fentanyl Citrate/Pf 100 Mcg/2 Ml Vial) 25 mcg IVPUSH Q5M PRN; Protocol PRN Reason: Pain, Moderate (Pain Scale 4-6 Hydromorphone HCl (Hydromorphone Hcl 0.5 Mg/0.5 Ml Syringe) 0.25 mg IVPUSH Q4H PRN; Protocol PRN Reason: Pain, Severe (Pain Scale 7-10) Levothyroxine Sodium (Levothyroxine Sodium 75 Mcg Tablet) 75 mcg PO DAILY@0600 [facility] Last Admin: 07/10/22 05:46 Dose: 75 mcg Documented By: JIMENA Ondansetron HCl (Ondansetron Hcl 4 Mg/2 Ml Vial) 4 mg IVPUSH ONCE PRN PRN Reason: Nausea and Vomiting Oxycodone HCl (Oxycodone Hcl Immed Release 5 Mg Tablet) 5 mg PO Q4H PRN PRN Reason: Pain, Moderate (Pain Scale 4-6 Oxycodone HCl (Oxycodone Hcl Er 10 Mg Tab.Er.12h) 10 mg PO BID [facility] Last Admin: 07/10/22 08:59 Dose: 10 mg Documented By: LEXA Pharmacy Consult (Consult Rx Perform Med Rec) 1 each MISCELLANE ONCE PRN PRN Reason: Consult order Sodium Chloride (0.9 % Sodium Chloride Flush 3 Ml Syringe) 3 ml IVFLUSH QSCOFT [facility] Last Admin: 07/10/22 08:59 Dose: 3 ml Documented By: LEXA Sodium Chloride (0.9 % Sodium Chloride Flush 3 Ml Sy[facility]) [facility] Admin: 07/10/22 07:31 Dose: Not Given Documented By: LEXA Non-Admin Reason: Duplicate Order Labs CBC & Chem 7: 07/10/22 05:37 07/10/22 05:37 Labs: Laboratory Results - last 24 hr 07/07/22 07/09/22 07/10/22 20:08 16:21 05:37 MCV 88.5 88.2 MCH 29.3 29.2 MCHC 33.1 33.1 RDW 15.0 15.5 Plt Count 141 L 128 L MPV 10.1 10.7 Immature Gran % (Auto) 1.8 H Neut % (Auto) 71.6 Lymph % (Auto) 16.4 L Clayton % (Auto) 7.4 Eos % (Auto) 2.3 Baso % (Auto) 0.5 Lymph # (Auto) 0.9 L Clayton # (Auto) 0.4 Eos # (Auto) 0.1 Baso # (Auto) 0.0 Abs Immat Gran (auto) 0.10 H Absolute Neuts (auto) 4.0 Absolute Nucleated RBC 0.000 0.000 Nucleated RBC % (auto) 0.0 0.0 Anion Gap Estim Creat Clear Calc Estimated GFR Random Glucose Calcium Blood Type A Positive Antibody Screen NEGATIVE Crossmatch See Detail 07/10/22 07/10/22 07/10/22 05:37 05:37 05:37 MCV Cancelled MCH Cancelled MCHC Cancelled RDW Cancelled Plt Count Cancelled MPV Cancelled Immature Gran % (Auto) Neut % (Auto) Lymph % (Auto) Clayton % (Auto) Eos % (Auto) Baso % (Auto) Lymph # (Auto) Clayton # (Auto) Eos # (Auto) Baso # (Auto) Abs Immat Gran (auto) Absolute Neuts (auto) Absolute Nucleated RBC Cancelled Nucleated RBC % (auto) Cancelled Anion Gap Cancelled 9 L Estim Creat Clear Calc Cancelled 37.1 Estimated GFR Cancelled 52 Random Glucose Cancelled 97 Calcium Cancelled 8.2 L Blood Type Antibody Screen Crossmatch Assessment and Plan (1) Acute anemia: Status: Acute (2) Fracture of femoral neck, left: Status: Acute Plan An 86 years old lady with PMH of hypothyroidism, HLD in osteoporosis who presents to the hospital after sustaining a mechanical fall at a visit to her friend. Left hip fracture secondary to Fall Pod 2 Orthopedic team following Start Lovenox for prophylaxis Morphine as needed for pain Plan to discharge to short-term rehab Acute on chronic anemia Combination of dilution and blood loss No OBS source of bleeding, Improved to 9.9 after 2 units transfusion Hypothyroidism Continue home medication DVT PPX Lovenox The patient will need Overnight hospital stay following H&H pending safe discharge plan. Time Spent With Patient Time: Total time managing care of this patient today ____ minutes. Quality Stroke Does the patient have a stroke diagnosis?: No VTE Prior VTE?: No VTE Risk Level:: Medical - low VTE Device Contraindication: Treatment Not Indicated VTE Drug Contraindication: N/A - Med Ordered
[2022-07-10] MEDS: Enoxaparin Sodium 40 MG/0.4 ML SYRINGE SUBCUT (11:22)
[2022-07-10 12:00] VITALS: BP 115/56; PULSE 61; RESP 18; TEMP 36.7; O2SAT 92
--- NOTE | 2022-07-10 12:01 | HO.POSTANES ---
Post Anesthesia Evaluation Post Anesthesia Evaluation Vital Signs: Vital Signs Temp Pulse Resp BP Pulse Ox O2 Del Method O2 Flow Rate 07/10/22 09:00 96 Nasal Cannula 07/10/22 08:00 97.7 F 65 18 115/75 96 Nasal Cannula 2 07/10/22 03:47 98.3 F 63 14 145/62 H 97 Nasal Cannula 2 Anesthesia: General Mental Status: Awake Nausea/Vomiting: None Hydration: Adequate Anesthesia-Related Issues: No Anes. Related Issues
--- NOTE | 2022-07-10 12:04 | PM.DS ---
DS: Providers Provider Date of Service: 07/10/22 Date of admission: 07/07/22 17:15 Primary care physician: Unknown Physician Consults: 07/07/22 17:16 Consult to Orthopedics Routine Consulting Provider: Rupesh Waldrop Reason for consultation: Hip fracture DS: Diagnosis Discharge Diagnosis (1) Acute anemia: Status: Acute (2) Fracture of femoral neck, left: Status: Acute (3) Fall: Status: Acute DS: Summary Hospital Course Hospital Course: Admission note HPI An 86 years old lady with PMH of hypothyroidism, HLD in osteoporosis who presents to the hospital after sustaining a mechanical fall at a visit to her friend.? The patient reported that she was walking into [facility] to visit her friend when she suddenly tripped and fell to the floor as her left foot to felt like sponge, she fell on her left side not hitting her head or losing her consciousness.? She was unable to stand up on her own so they brought her a chair.? She was unable to stand and ambulance was called who brought her to the hospital where an x-ray was consistent with left hip fracture.? She denies any headache, double vision pain, chest pain, shortness of breath, fever, chills, change in bowel habit or urinary symptoms. She reports she is functional at home, she walks without a walker or a cane. Admitted for further evaluation and treatment. Hospital course The patient was admitted to the hospital after sustaining a fall. Found to have left hip femoral neck fracture evaluated by orthopedic team who did a fixation to 2nd a as the patient tolerated the surgery well. She was able to ambulate with physical therapist after the surgery who recommended short-term rehab. Pain is well controlled by oxycodone. The patient was noted to have a drop in her hemoglobin level to 8 from baseline of around 12 believed to be related to surgery and dilution. Received 2 units of blood with improvement of her hemoglobin to almost 10. Use oxycodone as needed for pain Continue Lovenox for 4 weeks for clot prevention To follow-up with orthopedic team in 2 weeks, Dr. Waldrop Time Spent with Patient Time attestation: Total time managing care of this patient today ____ minutes. Discharge coordination time: Greater than 30 minutes Quality: Safe Use of Opioids Does Pt have an Active Cancer Diagnosis on the Problem List?: No Quality: Stroke Does the patient have a stroke diagnosis?: No Physical Exam Vital Signs: Vital Signs: Last Vital Signs Temp 97.7 F 07/10/22 08:00 Pulse 65 07/10/22 08:00 Resp 18 07/10/22 08:00 BP 115/75 07/10/22 08:00 Pulse Ox 96 07/10/22 09:00 O2 Del Method 07/10/22 09:00 O2 Flow Rate 2 07/10/22 08:00 Oxygen Flow Rate 2 07/10/22 09:00 BMI result Body Mass Index 24.2 Const: Other: Constitutional : Awake, interactive, not in distress Neck : Normal inspection, Supple Cardiovascular : RRR, no JVP, no lower extremity edema Respiratory : good bilateral air entry, no crackles, wheezes or rhonchi Gastrointestinal: soft, lax, Normal bowel sounds, Non tender Skin : Warm, Dry Musculoskeletal: Left leg surgical site covered with dressing, no erythema drainage or bleeding noted Neurological : Alert & oriented x3, No focal deficit DS: Data Data Completed and Pending Pending studies at discharge: Pending at discharge 07/08/22 10:26 Surgical [PTH] Routine Labs on day of discharge: Laboratory Results - last 24 hr 07/07/22 07/09/22 07/10/22 20:08 16:21 05:37 WBC 7.6 5.6 RBC 3.04 L 3.39 L Hgb 8.9 L 9.9 L Hct 26.9 L 29.9 L MCV 88.5 88.2 MCH 29.3 29.2 MCHC 33.1 33.1 RDW 15.0 15.5 Plt Count 141 L 128 L MPV 10.1 10.7 Immature Gran % (Auto) 1.8 H Neut % (Auto) 71.6 Lymph % (Auto) 16.4 L Jennings % (Auto) 7.4 Eos % (Auto) 2.3 Baso % (Auto) 0.5 Lymph # (Auto) 0.9 L Jennings # (Auto) 0.4 Eos # (Auto) 0.1 Baso # (Auto) 0.0 Abs Immat Gran (auto) 0.10 H Absolute Neuts (auto) 4.0 Absolute Nucleated RBC 0.000 0.000 Nucleated RBC % (auto) 0.0 0.0 Sodium Potassium Chloride Carbon Dioxide Anion Gap BUN Creatinine Estim Creat Clear Calc Estimated GFR Random Glucose Calcium Blood Type A Positive Antibody Screen NEGATIVE Crossmatch See Detail 07/10/22 07/10/22 07/10/22 05:37 05:37 05:37 WBC Cancelled RBC Cancelled Hgb Cancelled Hct Cancelled MCV Cancelled MCH Cancelled MCHC Cancelled RDW Cancelled Plt Count Cancelled MPV Cancelled Immature Gran % (Auto) Neut % (Auto) Lymph % (Auto) Jennings % (Auto) Eos % (Auto) Baso % (Auto) Lymph # (Auto) Jennings # (Auto) Eos # (Auto) Baso # (Auto) Abs Immat Gran (auto) Absolute Neuts (auto) Absolute Nucleated RBC Cancelled Nucleated RBC % (auto) Cancelled Sodium Cancelled 135 Potassium Cancelled 4.6 Chloride Cancelled 105 Carbon Dioxide Cancelled 26 Anion Gap Cancelled 9 L BUN Cancelled 22 H Creatinine Cancelled 1.00 Estim Creat Clear Calc Cancelled 37.1 Estimated GFR Cancelled 52 Random Glucose Cancelled 97 Calcium Cancelled 8.2 L Blood Type Antibody Screen Crossmatch Imaging Head x-ray: Radiologist's impression: ITS Impressions Chest X-Ray 07/07/22 15:26 IMPRESSION: * No radiographic evidence of acute cardiopulmonary disease. * Minimal nonspecific increased interstitial lung markings. * No pleural effusion. Foot X-Ray 07/07/22 15:26 IMPRESSION: Limited incomplete study. Frontal view suboptimal angulated. * No fracture. * There is a small inferior calcaneal spur. Hip/Pelvis X-Ray 07/07/22 15:26 IMPRESSION: Displaced angulated fracture of the left femoral neck. Knee X-Ray 07/07/22 15:26 IMPRESSION: * No fracture. 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 * Heavy vascular calcifications. Cervical Spine CT 07/07/22 15:40 IMPRESSION: No acute cervical spine fracture. Multilevel cervical spondylosis as described. Fleischner guidelines were followed. Head CT 07/07/22 15:40 IMPRESSION: No acute intracranial pathology. Findings consistent with microangiopathy. Pelvis X-Ray 07/08/22 11:55 IMPRESSION: Satisfactory appearance of bilateral total hip arthroplasties on single AP view. Discharge Plan Discharge Anticipated Discharge Date/Time: 07/10/22 11:53 Patient Disposition: er SNF Discharge Diagnosis: Left hip fracture Acute anemia Referrals: Katelyn Garcia PA-C [Physician Stick Welder] - 2 Weeks (07/23/22 1:15) Physician,Unknown J [Primary Care Provider] - 1 Week Discharge Medications: New enoxaparin 40 mg/0.4 mL Syringe 40 mg subcut Q24H 28 Days Qty: 11.2 0RF oxycodone 5 mg Tablet 5 mg PO Q4H PRN (Reason: Pain, Moderate (Pain Scale 4-6) Qty: 24 0RF Rx Instructions: Partial Fill upon patient request. Continued alendronate 70 mg tablet 70 mg PO GOODEN@0900 simvastatin 10 mg tablet 1 tab PO BEDTIME levothyroxine 75 mcg tablet 1 tab PO DAILY@0600 Discharge Orders: Discharge Order (Routine); Ordered 07/10/22 Ordered By: Roopa Machado Diet: Advance to usual diet Activity on Discharge: As tolerated Stand Alone Forms: Patient Portal Discharge page Care Plan Goals: Read below Health Concerns: Read below Plan of Treatment: Read below Assessment: You were admitted to the hospital after sustaining a fall. Found to have an evidence of left hip fracture. Had surgery done and noted to have a drop in your blood level requiring 2 units of blood transfusion with good response. You were able to participate with Physical therapy who recommended short-term rehab placement. Use oxycodone as needed for pain Continue Lovenox for 4 weeks for clot prevention To follow-up with orthopedic team in 2 weeks, Dr. Waldrop
[2022-07-10 12:23] LABS: COVID-19 Test Negative (Negative); IDNOW Serial# BCCEAD1C
[2022-07-10 14:20] VITALS: PULSE 97; O2SAT 90
--- NOTE | 2022-07-10 14:26 | HO.POSTANES ---
Post Anesthesia Evaluation Post Anesthesia Evaluation Vital Signs: Vital Signs Temp Pulse Resp BP Pulse Ox O2 Del Method O2 Flow Rate 07/10/22 12:00 98.0 F 61 18 115/56 L 92 Room Air 07/10/22 09:00 96 Nasal Cannula 07/10/22 08:00 97.7 F 65 18 115/75 96 Nasal Cannula 2 07/10/22 03:47 98.3 F 63 14 145/62 H 97 Nasal Cannula 2 Anesthesia: General Mental Status: Awake Pain Control: Satisfactory Nausea/Vomiting: None Hydration: Adequate Anesthesia-Related Issues: No Anes. Related Issues
== END 2022-07-10 15:53 | disposition skilled nursing facility (03) | DRG 522 ==
LOC: HO.ED 17:04 → HO.EDOVER 17:22 → HO.S3 17:58
PROVIDERS: Orthopaedic Surgery; Physician Assistant; Physician Assistant Medical; Admitting Provider Student in an Organized Health Care Education/Training Program; Emergency Provider Emergency Medicine; PCP Internal Medicine; Visit Provider Student in an Organized Health Care Education/Training Program
PROC: 0SRS0JA Replacement of Left Hip Joint, Femoral Surface with Synthetic Substitute, Uncemented, Open Approach (ICD-10-PCS; CPT 27125; principal; 2022-07-08 09:00)
DX: S72.002A Fracture of unspecified part of neck of left femur, initial encounter for closed fracture (principal); D62 Acute posthemorrhagic anemia; W19.XXXA Unspecified fall, initial encounter; E03.9 Hypothyroidism, unspecified; M81.0 Age-related osteoporosis without current pathological fracture; E78.5 Hyperlipidemia, unspecified; Z20.822 Contact with and (suspected) exposure to COVID-19; Z87.891 Personal history of nicotine dependence; Z88.2 Allergy status to sulfonamides; Z79.890 Hormone replacement therapy; Z79.899 Other long term (current) drug therapy
CPT/HCPCS: 36415; 70450; 71045; 72125; 72170; 73502; 73564; 73630; 80048; 80053; 83735; 85025; 85027; 85610; 86850; 86900; 86901; 86923; 87635; 88304; 88305; 88311; 93005; 97110; 97116; 97161; 97165; 97535; 99285; C1758; C1776; J0690; J1100; J1650; J2250; J2370; J2405; J2795; J3010; P9016

== ENCOUNTER 2022-07-23 09:08 | Outpatient (REF) | payer OTHER, MEDICARE, SELFPAY ==
--- NOTE | ~2022-07-23 | XR_ITS ---
EXAMINATION: XR HIP, LEFT CLINICAL INFORMATION: Pain in unspecified hip COMPARISON: 07/08/2022 TECHNIQUE: AP pelvis with AP and frog-leg lateral views of the left hip. FINDINGS: No hip or pelvic fracture seen. Previously seen soft tissue gas has resolved. Similar appearance status post left hip hemiarthroplasty. Hardware is intact. Right total hip arthroplasty hardware intact as well. XR/XR hip LT w [id number] IMPRESSION: Unchanged appearance status post left hip hemiarthroplasty. Remote prior right total hip arthroplasty unchanged.
== END 2022-07-23 09:09 | disposition home or self-care (01) ==
LOC: HO.HOSX 09:08
PROVIDERS: Visit Provider Physician Assistant
DX: M25.552 Pain in left hip (principal)
CPT/HCPCS: 73502

== ENCOUNTER → 2022-08-20 11:01 | Outpatient (BNVA) | payer SELFPAY | PROVIDERS: PCP Internal Medicine; Visit Provider Physician Assistant | DX: Z13.89 Encounter for screening for other disorder (principal) ==

== ENCOUNTER 2024-01-21 10:48 | Outpatient (AMB) | payer MEDICARE, SELFPAY ==
[2024-01-21 11:19] VITALS: BP 110/58; PULSE 70; O2SAT 96; BMI 24.7
--- NOTE | 2024-01-21 11:19 | MHC.OFFWIV ---
Intake Vital Signs 01/21/24 11:19 Height 5 ft 4 in Weight 144 lb 2 oz BMI 24.7 BP 110/58 L Blood Pressure Location Lt brachial Pulse 70 Pulse Source Pulse Oximeter Pulse Oximetry (%) 96 Oxygen Delivery Method Room Air Intake Visit Reasons: Left ear blockage Intake Note: Patient is here with left ear blockage for a few days, states it feels like an echo. Patient Tobacco Use Status: Former Tobacco user Allergies zinc [ZINC] Allergy (Severe, Verified 01/21/24 11:51) ITCHING sulfamethoxazole [From BACTRIM] Allergy (Intermediate, Verified 01/21/24 11:51) RASH trimethoprim [From BACTRIM] Allergy (Intermediate, Verified 01/21/24 11:51) RASH HPI HPI Comments History of Present Illness Details Here today with complaints of a blocked sensation in the L ear that started on Saturday. Reports she was in her normal state of health until then. Reports that her hearing is muffled and echo. She denies any fever, chills, drainage from the ear, head trauma. No at home remedies. Exam: Left EAC cerumen impaction Right EAC nonobs cerumen, intact TM Plan: debrox then RTO for lavage. This note is constructed using voice recognition software. While every effort has been made to ensure accuracy in tacker off, still errors may have been included Sometimes, these errors may affect the content or meaning of the given sentence . [facility] [place] Medical History Hyperlipidemia Hypothyroidism Osteoporosis Surgical History History of hernia surgery History of hip surgery Social History Household Members: None Housing: Other Housing Other:: mobile home Do you presently have visiting nurse or other home services: No Patient Tobacco Use Status: Former Tobacco user Years Smoked: 25 service: No Current occupational status: retired Physical Exam Vital Signs: Last Vital Signs Pulse 70 01/21/24 11:19 BP 110/58 L 01/21/24 11:19 Pulse Ox 96 01/21/24 11:19 Oxygen Delivery Method Room Air 01/21/24 11:19 BMI result Body Mass Index 24.7 Assessment & Plan Assessment & Plan (1) Impacted cerumen, left ear: Code(s): H61.22 - Impacted cerumen, left ear Plan: . Plan . Medications: New carbamide peroxide 6.5% (Debrox) 5 drps otic (ears) DAILY 15 mL 0RF BILAT EARS 5 days Patient Instructions: Earwax (Cerumen Impaction) Created in Ears Earwax, called cerumen, is produced by special wax-forming glands located in the skin of the outer one-third of the ear canal. It is normal to have cerumen in ear canal as this waxy substance serves as a self-cleaning agent with protective, lubricating, and antibacterial properties. The absence of earwax may result in dry, itchy ears. Self-cleaning means there is a slow and [employer] movement of earwax and skin cells from the eardrum to the ear opening. Old earwax is constantly being transported, assisted by chewing and jaw motion, from the ear canal to the ear opening where, most of the time, it dries, flakes, and falls out. What Are the Symptoms of an Earwax Blockage? Symptoms of an earwax problem may include: Earache Feeling of plugged hearing or fullness in the ear Partial hearing loss that gets worse Tinnitus, ringing, or noises in the ear Itching, odor, or discharge Coughing Pain Infection What Causes Earwax Blockage? When a patient has wax blockage against the eardrum, it is often because they have been probing the ear with such things as cotton-tipped swabs, kelin pins, or twisted napkin corners. These objects only push the wax in deeper in the ear canal. Why Is It Dangerous to Use Swabs to Remove Earwax? Wax blockage is one of the most common causes of hearing loss. This is often caused by attempts to clean the ear with cotton swabs. Most cleaning attempts merely push the wax deeper into the ear canal which is shaped like an hourglass, causing a blockage at the narrowing part of the ear canal. In addition, accidental trauma to the ear drum or ear bones can occur if the swab is pushed too deep. Good intentions to keep ears clean may lessen the ability to hear. The ear is a delicate and complicated body part, including the skin of the ear canal and the eardrum. Therefore, special care should be given to this part of the body. Discontinue the habit of inserting cotton-tipped swabs or other objects into the ear canals. What Are the Treatment Options? Cleaning a working ear can be done by washing it with a soft cloth, but do not insert anything into the ear. Ideally, the ear canals should never have to be cleaned. However, that isn?t always the case. The ears should be cleaned when enough earwax gathers to cause symptoms or to prevent a needed assessment of the ear by your doctor. This condition is call cerumen impaction. Most cases of ear wax blockage respond to home treatments used to soften wax. Patients can try placing a few drops of mineral oil, baby oil, glycerin, or commercial drops in the ear. Detergent drops such as hydrogen peroxide or carbamide peroxide (available in most pharmacies) may also aid in the removal of wax. Irrigation or ear syringing is commonly used for cleaning and can be performed by a physician or at home using a commercially available irrigation kit. Common solutions used for syringing include water and saline, which should be warmed to body temperature to prevent dizziness. Ear syringing is most effective when water, saline, or wax dissolving drops are put in the ear canal 15 to 30 minutes before treatment. Caution is advised to avoid having your ears irrigated if you have diabetes, a hole in the eardrum (perforation), tube in the eardrum, skin problems such as eczema in the ear canal or a weakened immune system. >> If you have been prescribed Debrox, use as directed for 5 nights and return to the office on Day 6 for an ear lavage to remove the wax<< Manual removal of earwax is also effective. This is most often performed by an ENT (ear, nose, and throat) specialist, or store detective, using suction or special miniature instruments, and a microscope to magnify the ear canal. Manual removal is preferred if your ear canal is narrow, the eardrum has a perforation or tube, other methods have failed, or if you have skin problems affecting the ear canal, diabetes or a weakened immune system. When Should I Talk to a Doctor? If home treatments do not help, or if wax has accumulated so much that it blocks your ear canal and your ability to hear, an ENT specialist may prescribe eardrops designed to soften wax, or they may wash or vacuum it out. Your ENT specialist may also need to remove the wax under microscopic visualization. If there is a possibility of a perforation in the eardrum, consult a physician prior to trying any [id number] remedies. Putting eardrops or other products in the ear with the presence of an eardrum perforation may cause pain or an infection. Washing water through such a hole could start an infection. If you are prone to repeated wax impaction or use hearing aids, consider seeing your doctor every six to 12 months for a checkup and routine preventive cleaning. What Questions Should I Ask My Doctor? What are the benefits and risks/side effects of different cerumen removal management options: earwax softening products, water irrigation vs. physical removal? Does cerumen accumulation vary with age, gender, familial or dietary intake? How do I manage swimming underwater with cerumen impaction? Should anything be done to the ears to prevent a buildup of earwax? How often should cerumen be removed from the ears? Are ear candles a safe option for removing earwax? Coding Level of Care Code Est Pt Level 3 (79883) Diagnoses Impacted cerumen, left ear H61.22
== END 2024-01-21 11:54 | disposition home or self-care (01) ==
PROVIDERS: PCP Internal Medicine; Visit Provider Nurse Practitioner Family
DX: H61.22 Impacted cerumen, left ear (principal)
CPT/HCPCS: 99213

== ENCOUNTER 2024-01-30 09:49 | Outpatient (AMB) | payer MEDICARE, SELFPAY ==
--- NOTE | 2024-01-30 09:50 | MHC.PC.OV ---
Vital Signs 01/30/24 10:00 Weight 147 lb 2 oz BP 100/48 L Blood Pressure Location Rt brachial Position Sitting Respiration 12 Pulse 37 L Pulse Source Pulse Oximeter Temp 97.5 F Temp Source Oral Pulse Oximetry (%) 94 Oxygen Delivery Method Room Air Intake Visit Reasons: next week L ear lavage Intake Note: patient here to follow up on ear. Book Repairer Required: No Is last menstrual period known: No Post menopausal: No Patient : No Allergies zinc [ZINC] Allergy (Severe, Verified 01/30/24 09:55) ITCHING sulfamethoxazole [From BACTRIM] Allergy (Intermediate, Verified 01/30/24 09:55) RASH trimethoprim [From BACTRIM] Allergy (Intermediate, Verified 01/30/24 09:55) RASH Tobacco use date assessed: 01/30/24 Fall risk assessment: No Falls in past year Dental Screening Dental Screen Date: 01/30/24 Did you have a dental visit in the last 12 months?: No Did you have a dental problem in the last 6 months where you did not have access to dental care?: No Was dental information given to patient?: No HPI HPI Comments History of Present Illness Details Here today for ear lavage bilat. Used debrox as directed. No change since visit last week Exam: Successful lavage bilat ears, tolerated well, TM intact and clear bilat, large yield from left, small amt from right Plan: No further fu needed. [facility] Medical History Hyperlipidemia Hypothyroidism Osteoporosis Surgical History History of hernia surgery History of hip surgery Social History Household Members: None Housing: Other Housing Other:: mobile home Do you presently have visiting nurse or other home services: No Patient Tobacco Use Status: Former Tobacco user Years Smoked: 25 e-Cigarette/Vaping Use: Never Used Second Hand Smoke Exposure: No Patient : No service: No Current occupational status: retired Cognitive needs: No Hearing needs: Yes Vision needs: Yes Physical exam (Primary Care) Vital Signs: Last Vital Signs Temp 97.5 F 01/30/24 10:00 Pulse 37 L 01/30/24 10:00 Resp 12 01/30/24 10:00 BP 100/48 L 01/30/24 10:00 Pulse Ox 94 01/30/24 10:00 Oxygen Delivery Method Room Air 01/30/24 10:00 Tobacco/Smoking Status: Tobacco use Status Tobacco use date assessed 01/30/24 01/30/24 10:01 Patient Tobacco Use Status Former Tobacco user 01/30/24 09:52 e-Cigarette/Vaping Use Never Used 01/30/24 10:01 Office Procedures Cerumen Removal From which ear canal was the cerumen removed: bilateral Removal: irrigation Notes: patient tolerated procedure well, no complications and ear canal clear [id number] Irrigation/Lavage Assessment and Plan Assessment & Plan (1) Bilateral impacted cerumen: Code(s): H61.23 - Impacted cerumen, bilateral Coding Level of Care Code Est Pt Level 3 (66580) Diagnoses Bilateral impacted cerumen H61.23 CPT Codes Office Procedure - CPT: 84985-Lxd Irrigation/Lavage ([id number])
[2024-01-30 10:00] VITALS: BP 100/48; PULSE 37; RESP 12; TEMP 36.4; O2SAT 94
== END 2024-01-30 10:19 | disposition home or self-care (01) ==
PROVIDERS: PCP Nurse Practitioner Family; Visit Provider Nurse Practitioner Family
DX: H61.23 Impacted cerumen, bilateral (principal)
CPT/HCPCS: 69209